=== PATIENT | male | born 1980 | race Caucasian/White ===

== ENCOUNTER 2017-01-29 18:49 | Emergency (ER) | payer OTHER ==
--- NOTE | 2017-01-29 19:01 | EDM.PDOC ---
ED HPI GENERAL MEDICAL PROBLEM - General Chief Complaint: Fever Stated Complaint: FEVER/COUGH Time Seen by Provider: 01/29/17 19:00 Source of Information: Reports: Patient History Limitations: Reports: No limitations - History of Present Illness INITIAL COMMENTS - FREE TEXT/NARRATIVE: History of present illness: [36-year-old male coming complaints with sore throat, intermittent fever, cough and occasional feelings of shortness of breath.] Review of systems: As per history of present illness and below otherwise all systems reviewed and negative. Past medical history: As per history of present illness and as reviewed below otherwise noncontributory. Surgical history: As per history of present illness and as reviewed below otherwise noncontributory. Social history: No reported history of drug or alcohol abuse. Family history: As per history of present illness and as reviewed below otherwise noncontributory. Physical exam: HEENT: Atraumatic, normocephalic, pupils reactive, negative for conjunctival pallor or scleral icterus, mucous membranes moist oropharyngeal erythema without white patchy exudate, throat clear, neck supple, nontender, trachea midline. Lungs: Sporadic bronchial vesicular breath sound clears with a cough. Otherwise breath sounds equal bilaterally, chest nontender. Heart: S1S2, regular, negative for clicks, rubs, or JVD. Abdomen: Soft, nondistended, nontender. Negative for masses or hepatosplenomegaly. Negative for costovertebral tenderness. Pelvis: Stable nontender. Genitourinary: Deferred. Rectal: Deferred. Extremities: Atraumatic, negative for cords or calf pain. Neurovascular unremarkable. Neuro: Awake, alert, oriented. Cranial nerves II through XII unremarkable. Cerebellum unremarkable. Motor and sensory unremarkable throughout. Exam nonfocal. Diagnostics: [CBC, CMP, chest x-ray] Therapeutics: [IV fluid, Toradol] Impression: [Bacterial pharyngitis, bronchitis] Plan: [Antibiotic, Tessalon pearls, inhaler] Definitive disposition and diagnosis as appropriate pending reevaluation and review of above. Upper Chest Pain Score (Numeric/FACES): 6 - Related Data Allergies Allergy/AdvReac Type Severity Reaction Status Date / Time No Known Allergies Allergy Verified 01/29/17 19:02 Home Meds: Home Meds Albuterol [IJD: Albuterol HFA] 2 puff .XX Q6HR #8 gm 01/29/17 [Rx] Azithromycin [IJD: Azithromycin] 250 mg PO DAILY #6 tab 01/29/17 [Rx] Benzonatate [Tessalon Perle] 100 mg PO BID #20 capsule 01/29/17 [Rx] methylPREDNISolone [Medrol] 4 mg PO ASDIRECTED #21 dospk 01/29/17 [Rx] ED ROS GENERAL - Review of Systems Review Of Systems: See Below (See history of present illness) ED EXAM, GENERAL - Physical Exam Exam: See Below (See history of present illness) Course - Vital Signs Last Recorded V/S: Last Vital Signs Temp 36.2 C 01/29/17 18:57 Pulse 81 01/29/17 18:57 Resp 14 01/29/17 18:57 BP 126/81 01/29/17 18:57 Pulse Ox 96 01/29/17 18:57 - Orders/Labs/Meds Orders: Active Orders 24 hr Category Date Time Status Chest 2V [CR] Stat Exams 01/29/17 19:10 Taken Sodium Chloride 0.9% [Normal Saline] 1,000 ml Med 01/29/17 19:09 Active IV STAT Medication Orders Sodium Chloride (Normal Saline) 1,000 mls @ 999 mls/hr IV STAT ONE Stop: 01/29/17 20:09 Last Admin: 01/29/17 19:23 Dose: 999 mls/hr Labs: Laboratory Tests 01/29/17 01/29/17 Range/Units 19:25 19:25 WBC 4.12 (4.0-11.0) K/uL RBC 4.88 (4.50-5.90) M/uL Hgb 14.6 (13.0-17.0) g/dL Hct 42.4 (38.0-50.0) % MCV 86.9 (80.0-98.0) fL MCH 29.9 (27.0-32.0) pg MCHC 34.4 (31.0-37.0) g/dL RDW Std Deviation 44.1 (28.0-62.0) fl RDW Coeff of Simran 14 (11.0-15.0) % Plt Count 163 (150-400) K/uL MPV 9.70 (7.40-12.00) fL Neut % (Auto) 40.1 L (48.0-80.0) % Lymph % (Auto) 41.7 H (16.0-40.0) % Cowley % (Auto) 17.5 H (0.0-15.0) % Eos % (Auto) 0.0 (0.0-7.0) % Baso % (Auto) 0.7 (0.0-1.5) % Neut # (Auto) 1.7 (1.4-5.7) K/uL Lymph # (Auto) 1.7 (0.6-2.4) K/uL Cowley # (Auto) 0.7 (0.0-0.8) K/uL Eos # (Auto) 0.0 (0.0-0.7) K/uL Baso # (Auto) 0.0 (0.0-0.1) K/uL Nucleated RBC % 0.0 /100WBC Nucleated RBCs # 0 K/uL Sodium 134 L (136-146) mmol/L Potassium 3.9 (3.5-5.1) mmol/L Chloride 101 (98-110) mmol/L Carbon Dioxide 22 (21-31) mmol/L BUN 15 (6.0-23.0) mg/dL Creatinine 1.0 (0.6-1.5) mg/dL Est Cr Clr Drug Dosing 113.17 mL/min Estimated GFR (MDRD) > 60.0 ml/min Glucose 92 (60-110) mg/dL Calcium 8.2 L (8.8-10.8) mg/dL Total Bilirubin 0.5 (0.1-1.5) mg/dL AST 28 (5-40) IU/L ALT 34 (8-54) IU/L Alkaline Phosphatase 50 (40-150) Total Protein 7.2 (6.0-8.0) g/dL Albumin 4.4 (3.5-5.0) g/dL Globulin 2.8 (2.0-3.5) g/dL Albumin/Globulin Ratio 1.6 (1.3-2.8) Meds: Medications Generic Name Dose Route Start Last Admin Trade Name Freq PRN Reason Stop Dose Admin Sodium Chloride 1,000 mls @ 999 mls/hr 01/29/17 19:09 01/29/17 19:23 Normal Saline IV 01/29/17 20:09 999 mls/hr STAT ONE Administration Discontinued Medications Generic Name Dose Route Start Last Admin Trade Name Kd PRN Reason Stop Dose Admin Ketorolac Tromethamine 30 mg 01/29/17 19:09 01/29/17 19:30 Toradol IVPUSH 01/29/17 19:10 30 mg ONETIME ONE Administration Departure - Departure Time of Disposition: 20:11 Disposition: Home, Self-Care 01 Condition: good Clinical Impression: Acute bacterial pharyngitis, Bronchitis Prescriptions: Albuterol [IJD: Albuterol HFA] 2 puff .XX Q6HR #8 gm Azithromycin [IJD: Azithromycin] 250 mg PO DAILY #6 tab Benzonatate [Tessalon Perle] 100 mg PO BID #20 capsule Additional Instructions: The following information is given to patients seen in the emergency department who are being discharged to home. This information is to outline your options for follow-up care. We provide all patients seen in our emergency department with a follow-up referral. The need for follow-up, as well as the timing and circumstances, are variable depending upon the specifics of your emergency department visit. If you don't have a primary care physician on staff, we will provide you with a referral. We always advise you to contact your personal physician following an emergency department visit to inform them of the circumstance of the visit and for follow-up with them and/or the need for any referrals to a consulting specialist. The emergency department will also refer you to a specialist when appropriate. This referral assures that you have the opportunity for follow-up care with a specialist. All of these measure are taken in an effort to provide you with optimal care, which includes your follow-up. Under all circumstances we always encourage you to contact your private physician who remains a resource for coordinating your care. When calling for follow-up care, please make the office aware that this follow-up is from your recent emergency room visit. If for any reason you are refused follow-up, please contact the [facility] Emergency Department at and asked to speak to the emergency department charge nurse. Take medication as directed Followup with primary care 1-2 days Return to ED as needed as discussed - My Orders Last 24 Hours: My Active Orders 01/29/17 19:09 Sodium Chloride 0.9% [Normal Saline] 1,000 ml IV STAT 01/29/17 19:10 Chest 2V [CR] Stat - Assessment/Plan Last 24 Hours: My Active Orders 01/29/17 19:09 Sodium Chloride 0.9% [Normal Saline] 1,000 ml IV STAT 01/29/17 19:10 Chest 2V [CR] Stat
[2017-01-29] MEDS ORDERED: Sodium Chloride 0.9% 1,000 ML IV ONE (19:09)
[2017-01-29] MEDS ORDERED: Ketorolac 30 MG/ML SDV IVPUSH ONE (19:09)
[2017-01-29 19:57] LABS: CHLORIDE,CL 101 mmol/L (98-110); SODIUM,NA 134 mmol/L (136-146)
[2017-01-29 21:00] VITALS: BP 128/76
--- NOTE | 2017-01-31 18:01 | CR ---
EXAM DATE: 01/29/17 PATIENT'S AGE: 36 Patient: QUENTIN DELANEY Facility: [place], [place] Site . Site : 1980 Study: XRay Chest [id number]/[id number] 7:41:50 PM Ordering Physician: Doctor Edmondson Final Report: INDICATION: COUGH, FEVER INDICATION: Cough, fever. TECHNIQUE: Chest 2 views. COMPARISON: None FINDINGS: Cardiovascular and mediastinum: Heart size and vasculature are normal in caliber and appearance. Mediastinum is within normal limits. Lungs and pleural spaces: Lungs are clear. No sign of infiltrate or mass. No sign of pleural effusion. No pneumothorax. Bones and soft tissues: No significant findings. IMPRESSION: Lungs are clear. Dictated by Rah Thomson MD @ 01/29/2017 7:56:24 PM Dictated by: Rah Thomson MD @ 01/29/2017 19:56:31 (Electronic Signature) Report Signed by Proxy and Original Signed Document filed in the Medical Record. MTDD
== END 2017-01-29 20:30 | disposition home or self-care (01) ==
LOC: MW.ED 18:49
DX: J02.8 Acute pharyngitis due to other specified organisms (principal); B96.89 Other specified bacterial agents as the cause of diseases classified elsewhere; J40 Bronchitis, not specified as acute or chronic; Z79.899 Other long term (current) drug therapy
CPT/HCPCS: 36415; 71020; 80053; 85025; 96361; 96374; 99283; J1885; J7040; 99284

== ENCOUNTER 2024-08-26 18:30 | Emergency (ER) | payer OTHER ==
[2024-08-26] MEDS: Ketorolac 30 MG/ML SDV IM ONE (19:52)
[2024-08-26 20:11] LABS: CORONAVIRUS COVID-19 NAA NEGATIVE (NEGATIVE); INFLUENZA A NAA NEGATIVE (NEGATIVE); INFLUENZA B NAA NEGATIVE (NEGATIVE); RESPIRATORY SYNCYTIAL VIR NAA NEGATIVE (NEGATIVE)
[2024-08-26] MEDS: Amoxicillin/Clavulanate K 875-125 MG Tab PO ONE (20:56)
[2024-08-26] MEDS: Doxycycline 100 MG Cap PO ONE (20:56)
[2024-08-26 23:48] VITALS: BP 129/75; PULSE 88
== END 2024-08-26 21:30 | disposition home or self-care (01) ==
LOC: MW.ED 18:30
DX: J18.9 Pneumonia, unspecified organism (principal); Z75.8 Other problems related to medical facilities and other health care
CPT/HCPCS: 0241U; 71046; 96372; 99283; A9270; J1885